=== PATIENT | female | born 1955 | race Caucasian/White ===

== ENCOUNTER → 2017-07-06 | Outpatient (CLI) | payer BC ==
--- NOTE | 2017-07-06 18:07 | CT ---
EXAMINATION TYPE: CT urogram wo/w con DATE OF EXAM: 07/06/2017 COMPARISON: NONE INDICATION: Per patient, she has not yet been diagnosed with bladder cancer. History of colon resecti on. Pelvic pain. DLP: 2977 mGycm, Automated exposure control for dose reduction was used. CONTRAST: 100 mL of Isovue M300. Study performed TECHNIQUE: Axial images were obtained from above the diaphragm to the pubic rami in the axial plane a t 5 mm thick sections. Reconstructed images are reviewed on the computer in the coronal plane. FINDINGS: Limited CT sections are obtained the lung bases. The lung bases are clear. CT ABDOMEN: Liver: Normal Spleen: Normal Pancreas: Normal Adrenal glands: The adrenal glands are normal. Gallbladder: Normal Kidneys: No masses are evident. No hydronephrosis is present. No cysts are present. Delayed images were obtained through the kidneys, which remain unremarkable. Three-D reconstructed images performed separately on the [employer] computer by the technologist are pres ented. Ureters as visualized appear normal. Urinary bladder appears to fill normally without intralum inal or extramural defects. Aorta: Vascular calcification is within the aorta. Inferior vena cava: Normal. CT PELVIS: Loops of bowel within the abdomen and pelvis are normal. Study is without oral contrast causing l imitation. There is a distal sigmoid colon resection suture line present. Appendix: Normal as visualized. Urinary bladder: No obvious urinary bladder mass is evident. Urinary bladder is incompletely distende d. Genitourinary structures: Uterus and adnexal regions appear normal. Osseous structures: No suspicious lytic or sclerotic lesions. IMPRESSIONS: 1. Suspicious changes within the renal collecting system are not identified. 2. Urinary bladder appears unremarkable with incomplete distention with contrast.
== END | disposition home or self-care (01) ==
LOC: RADCTMAIN 13:19
PROVIDERS: ATTEND Urology
DX: D49.4 Neoplasm of unspecified behavior of bladder (principal); R10.2 Pelvic and perineal pain
CPT/HCPCS: 82565; 74178; 36415; 74400; Q9967

== ENCOUNTER → 2018-06-15 | Outpatient (CLI) | payer BC ==
--- NOTE | 2018-06-15 11:26 | XR ---
EXAMINATION TYPE: XR chest 2V DATE OF EXAM: 06/15/2018 COMPARISON: NONE TECHNIQUE: PA and lateral views submitted. HISTORY: Hypercalcemia FINDINGS: The lungs are clear and there is no pneumothorax, pleural effusion, or focal pneumonia. Arthropathy of the shoulders. No overt failure. Atherosclerotic change aorta. Hypertrophic and degenerative santos ge of the spine. IMPRESSION: 1. No acute process.
== END | disposition home or self-care (01) ==
LOC: RADXRMAIN 11:05
PROVIDERS: ATTEND Family Medicine
DX: E83.52 Hypercalcemia (principal); Z98.82 Breast implant status
CPT/HCPCS: 71046

== ENCOUNTER → 2018-07-10 | Outpatient (CLI) | payer BC ==
--- NOTE | 2018-07-10 11:05 | BD ---
EXAMINATION TYPE: Axial Bone Density DATE OF EXAM: 07/10/2018 COMPARISON: NONE CLINICAL HISTORY: hypercalcemia Height: 5'4 Weight: 184 FRAX RISK QUESTIONS: History of Fracture in Adulthood: y Secondary Osteoporosis: RISK FACTORS HISTORY OF: Postmenopausal woman: y MEDICATIONS: Additional Medications: anti anxiety, depressant Additional History: EXAM MEASUREMENTS: Bone mineral densitometry was performed using the [employer]. Bone mineral density as measured about the Lumbar spine is: ----- L1-L4(G/cm2): 1.392 T Score Values are as follows: ----- L2: 0.8 ----- L3: 1.9 ----- L4: 3.2 ----- L1-L4: 1.8 Bone mineral density about the R hip (g/cm2): 0.967 Bone mineral density about the L hip (g/cm2): 0.936 T Score values are as follows: -----R Neck: -0.5 -----L Neck: -0.7 -----R Total: -0.5 -----L Total: -0.8 IMPRESSION: Normal (Values between +1 and -1 indicate normal bone mass). Consider repeating this study in 5 year s or sooner if there is some new clinical indication. NOTE: T-SCORE=SD OF THE YOUNG ADULT MEAN.
--- NOTE | 2018-07-10 12:40 | US ---
EXAMINATION TYPE: US thyroid st tissue head/neck DATE OF EXAM: 07/10/2018 COMPARISON: NONE CLINICAL HISTORY: E21.3 Hyperparathyroid,. GLAND SIZE: Right Lobe: 4.2 x 1.6 x 2.0 cm Overall Parenchyma: heterogenous Left Lobe: 4.3 x 1.0 x 1.3 cm Overall Parenchyma: heterogeneous Isthmus Thickness: 0.2 cm NODULES RIGHT: # of nodules measured on right: 2 1. 1.8 X 1.3 x 1.8 cm isoechoic mixed nodule at the mid pole with well-defined margins . This nodu le is wider than tall and shows intranodular vascularity. No prior 2. 1.0 X 0.7 x 0.9 cm echogenic solid nodule at the lower pole with well-defined margins. This nodu le is wider than tall and shows intranodular vascularity. No prior LEFT: # of nodules measured on left: 0 ISTHMUS: # of nodules measured in the isthmus: 0 Bilateral neck scanned, no evidence of lymphadenopathy. IMPRESSION: Right thyroid nodules measuring up to 1.8 cm. Fine-needle aspiration or nuclear medicine thyroid scan could be considered for further evaluation of the complex 1.8 cm right thyroid nodule.
--- NOTE | 2018-07-11 12:13 | MM ---
Reason for exam: screening (asymptomatic). History: Family history of breast cancer in sister at age 60. Silicone gel implants in both breasts, 1976. Excisional biopsy of both breasts. Physical Findings: A clinical breast exam by your physician is recommended on an annual basis and results should be correlated with mammographic findings. MG Screening Mammo Implant/CAD Bilateral CC, MLO, and ID view(s) were taken. No prior studies available for comparison. The breast tissue is heterogeneously dense. This may lower the sensitivity of mammography. Bilateral subglandular implants. There are few benign appearing round calcifications in the left breast. There is no discrete abnormality. Benign bilateral axillary lymph nodes. ASSESSMENT: Benign, BI-RAD 2 RECOMMENDATION: Routine screening mammogram of both breasts in 1 year.
== END | disposition home or self-care (01) ==
LOC: RADMAMWWP 09:30
PROVIDERS: ATTEND Family Medicine
DX: Z12.31 Encounter for screening mammogram for malignant neoplasm of breast (principal); E21.3 Hyperparathyroidism, unspecified; E04.2 Nontoxic multinodular goiter
CPT/HCPCS: 76536; 77067; 77080

== ENCOUNTER → 2018-09-26 | Outpatient (CLI) | payer BC | END | disposition home or self-care (01) | LOC: LABWHC1 11:34 | PROVIDERS: ATTEND Surgery | DX: E89.2 Postprocedural hypoparathyroidism (principal) | CPT/HCPCS: 36415; 82310 ==